=== PATIENT | female | born 1980 | race Two or more races ===

== ENCOUNTER 2018-04-11 11:25 | Inpatient (IN) | payer OTHER ==
[~2018-04-11] VITALS: Ht 165.1 cm; Wt 98.0 kg
[2018-04-11] MEDS ORDERED: SYNTHROID175 MCG PO (12:54)
[2018-04-11] MEDS ORDERED: PRENATAL FORMU1 EAC1 PO (12:54)
[2018-04-12] MEDS ORDERED: PEPCID20 MG PO (08:31)
== END 2018-04-12 11:58 | disposition home or self-care (01) | DRG 833 ==
LOC: LDR 11:25
PROVIDERS: ADMIT Obstetrics & Gynecology
PROC: 4A1HXCZ Monitoring of Products of Conception, Cardiac Rate, External Approach (ICD-10-PCS; principal; 2018-04-11)
DX: O26.893 Other specified pregnancy related conditions, third trimester (principal); K52.89 Other specified noninfective gastroenteritis and colitis; Z34.83 Encounter for supervision of other normal pregnancy, third trimester; E86.0 Dehydration

== ENCOUNTER 2018-06-05 12:55 | Inpatient (IN) | payer OTHER ==
[~2018-06-05] VITALS: Ht 165.1 cm; Wt 2.7 kg
[~2018-06-05 12:55] MED LIST: PEPCID20 MG PO; PRENATAL FORMU1 EAC1 PO; SYNTHROID175 MCG PO
[2018-06-09] MEDS ORDERED: CODE1TAB37 PO (08:48)
[2018-06-09] MEDS ORDERED: IBUPROFEN800 MG PO (08:49)
[2018-06-09] MEDS ORDERED: METOCLOPRAMIDE10 MG PO (08:50)
== END 2018-06-09 12:56 | disposition home or self-care (01) | DRG 788 ==
LOC: OB/GYN 12:55 → LDR 12:55 → O/R 06-06 10:15 → OB/GYN 06-06 13:24
PROVIDERS: ADMIT Obstetrics & Gynecology
PROC: 10907ZC Drainage of Amniotic Fluid, Therapeutic from Products of Conception, Via Natural or Artificial Opening (ICD-10-PCS; 2018-06-05)
PROC: 3E0P7VZ Introduction of Hormone into Female Reproductive, Via Natural or Artificial Opening (ICD-10-PCS; 2018-06-05)
PROC: 4A1HXCZ Monitoring of Products of Conception, Cardiac Rate, External Approach (ICD-10-PCS; 2018-06-05)
PROC: 3E033VJ Introduction of Other Hormone into Peripheral Vein, Percutaneous Approach (ICD-10-PCS; 2018-06-06)
PROC: 10D00Z1 Extraction of Products of Conception, Low, Open Approach (ICD-10-PCS; principal; 2018-06-06 09:00)
DX: O82 Encounter for cesarean delivery without indication (principal); O76 Abnormality in fetal heart rate and rhythm complicating labor and delivery; Z3A.38 38 weeks gestation of pregnancy; Z37.0 Single live birth

== ENCOUNTER 2019-07-22 13:30 | Inpatient (IN) | payer OTHER ==
[~2019-07-22] VITALS: Ht 162.6 cm; Wt 3.2 kg
[~2019-07-22 13:30] MED LIST changes: -SYNTHROID100 MCG PO
[2019-07-22] MEDS ORDERED: SYNTHROID100 MCG PO (15:41)
[2019-07-27] MEDS ORDERED: METOCLOPRAMIDE10 MG PO (06:46)
[2019-07-27] MEDS ORDERED: CODE1TAB37 PO (06:46)
[2019-07-27] MEDS ORDERED: DOCUSATE SODIU100 MG PO (06:46)
[2019-07-27] MEDS ORDERED: IBUPROFEN600 MG PO (06:46)
[2019-07-27] MEDS ORDERED: SYNTHROID100 MCG PO (06:47)
[2019-07-27] MEDS ORDERED: PROFERRIN-FORT1 EACH PO (06:47)
== END 2019-07-27 12:20 | disposition home or self-care (01) | DRG 785 ==
LOC: O/R 07-24 05:20 → OB/GYN 07-24 07:00
PROVIDERS: ADMIT Obstetrics & Gynecology; ATTEND Obstetrics & Gynecology
PROC: 0UL70ZZ Occlusion of Bilateral Fallopian Tubes, Open Approach (ICD-10-PCS; 2019-07-24)
PROC: 4A1HXCZ Monitoring of Products of Conception, Cardiac Rate, External Approach (ICD-10-PCS; 2019-07-24)
PROC: 10D00Z1 Extraction of Products of Conception, Low, Open Approach (ICD-10-PCS; principal; 2019-07-24 07:00)
DX: O82 Encounter for cesarean delivery without indication (principal); Z3A.38 38 weeks gestation of pregnancy; Z37.0 Single live birth; Z30.2 Encounter for sterilization

== ENCOUNTER → 2019-07-22 | Outpatient (CLI) | payer OTHER ==
[~2019-07-22] MED LIST changes: +CODE1TAB37 PO; +IBUPROFEN800 MG PO; +METOCLOPRAMIDE10 MG PO; +SYNTHROID100 MCG PO
== END | disposition home or self-care (01) ==
LOC: NST 16:46
DX: O36.8131 Decreased fetal movements, third trimester, fetus 1 (principal); Z3A.38 38 weeks gestation of pregnancy